=== PATIENT | female | born 2000 | race African-American/Black ===

== ENCOUNTER 2023-03-08 12:48 | Emergency (ER) | payer MEDICAID ==
[~2023-03-08] VITALS: Ht 160 cm; Wt 73.0 kg
[2023-03-08 12:59] VITALS: O2SAT 100
[2023-03-08 14:32] LABS: BASOPHILS % 0.4 % (0.0-2.0); EOSINOPHILS % 1.3 % (0.0-5.0); HEMATOCRIT. 40.2 % (36.0-48.0); HEMOGLOBIN. 13.4 g/dL (12.0-16.0); MEAN CORPUSCULAR HEMOGLOBIN 29.5 pg (28.0-32.0); MEAN CORPUSCULAR VOLUME 88.5 fL (81.0-99.0); MEAN PLATELET VOLUME 12.2 fl (7.4-10.4); MONOCYTES % 8.7 % (2.0-8.0); NEUTROPHILS % 55.6 % (40.0-76.0); PLATELET 173 x1000/uL (130-400); RED BLOOD CELL COUNT 4.54 mill/uL (4.2-5.4); RED CELL DISTRIBUTION WIDTH 13.4 % (11.6-14.6)
[2023-03-08 14:34] LABS: HCG SCREEN NEGATIVE
[2023-03-08 14:37] LABS: CHLORIDE 110 mEq/L (98-107)
[2023-03-08] MEDS ORDERED: DILTIAZEM HCL 5MG/ML 5ML VIAL IV ONE (14:45)
[2023-03-08] MEDS ORDERED: DILTIAZEM HCL 5MG/ML 5ML VIAL IV NR (15:45)
[2023-03-08 17:08] VITALS: BP 109/59; PULSE 98; RESP 15; TEMP 97.9
== END 2023-03-08 17:12 | disposition left against medical advice (07) ==
LOC: ER 12:48 → EDBEDREQTM 16:11 → EDBEDREQ 16:11 → ER 17:12 → CANBEDREQ 20:10
DX: I48.91 Unspecified atrial fibrillation (principal); I50.9 Heart failure, unspecified
CPT/HCPCS: 80053; 84703; 83880; 85025; 84484; 36415; 71045; 93005; 99291; J3490; Z7610 ×3